=== PATIENT | male | born 1930 | race Caucasian/White ===

== ENCOUNTER 2019-01-06 14:30 | Inpatient (IN) | payer MEDICARE, BC ==
[2019-01-10] MEDS ORDERED: FAMOTIDINE 20MG TABLET PO ONE (06:00)
[2019-01-10] MEDS ORDERED: ACETAMINOPHEN 1,000 MG/100 ML BTL IVPB ONE (06:00)
[2019-01-10] MEDS ORDERED: METOCLOPRAMIDE 10 MG TABLET PO ONE (06:00)
[2019-01-10] MEDS ORDERED: MECLIZINE 25 MG TABLET PO ONE (06:00)
[2019-01-10] MEDS ORDERED: CEFAZOLIN 2 Gram 2 GM/50 ML BAG IVPB ONE (06:00)
[2019-01-10] MEDS ORDERED: CELECOXIB 100 MG CAPSULE PO ONE (06:00)
[2019-01-10] MEDS ORDERED: VANCOMYCIN HCL 1 MG in DEXTROSE 5 % IN WATER 250 ML IVPB ONE ×2 (06:00)
[2019-01-10] MEDS ORDERED: DIPHENHYDRAMINE HCL 25 MG CAPSULE PO PRN (08:28)
[2019-01-10] MEDS ORDERED: ACETAMINOPHEN W/ CODEINE 300MG/60MG TABLET PO PRN ×2 (08:28)
[2019-01-10] MEDS ORDERED: HYDROCODONE/APAP 7.5/325MG TABLET PO PRN ×2 (08:28)
[2019-01-10] MEDS ORDERED: ACETAMINOPHEN 325 MG TAB PO PRN (08:28)
[2019-01-10] MEDS ORDERED: HYDROMORPHONE HCL 2 MG/ML VIAL IM PRN ×2 (08:28)
[2019-01-10] MEDS ORDERED: ONDANSETRON HCL IV 4 MG/2 ML VIAL IVP PRN (08:28)
[2019-01-10] MEDS ORDERED: PROMETHAZINE HCL 12.5 MG in 0.9 % SODIUM CHLORIDE 100ML 50 ML IVPB PRN (08:28)
[2019-01-10] MEDS ORDERED: ZOLPIDEM TARTRATE 5 MG TABLET PO PRN (08:28)
[2019-01-10] MEDS ORDERED: BISACODYL 10 MG SUPP RC PRN (08:28)
[2019-01-10] MEDS ORDERED: AL HYDROX/MAG HYDROX 30ML UD PO PRN (08:28)
[2019-01-10] MEDS ORDERED: METOCLOPRAMIDE HCL 10 MG/2 ML VIAL IVP PRN (08:28)
[2019-01-10] MEDS ORDERED: MAGNESIUM HYDROXIDE 30 ML UDC PO PRN (08:28)
[2019-01-10] MEDS ORDERED: TRAMADOL HCL 50 MG TABLET PO PRN ×2 (08:28)
[2019-01-10] MEDS ORDERED: KETOROLAC 30 MG/ML VIAL IVP PRN ×2 (08:28)
[2019-01-10] MEDS ORDERED: HYDROCODONE/APAP 5/325MG TABLET PO PRN (08:28)
[2019-01-10] MEDS ORDERED: ACETAMINOPHEN W/ CODEINE 300MG/30MG TABLET PO PRN ×2 (08:28)
[2019-01-10] MEDS ORDERED: NALOXONE 0.4 MG/1 ML VIAL IVP PRN (08:28)
[2019-01-10] MEDS ORDERED: VANCOMYCIN HCL 1,000 MG in 0.9 % SODIUM CHLORIDE 250ML 250 ML IVPB SCH (08:30)
[2019-01-10 08:31] LABS: ABO GROUP A; RH TYPE POSITIVE
[2019-01-10 08:43] LABS: ANTIBODY SCREEN NEGATIVE (NEGATIVE)
[2019-01-10] MEDS ORDERED: RINGERS SOLUTION,LACTATED 1,000 ML IV ONE (11:00)
[2019-01-10] MEDS ORDERED: BUPIVACAINE 0.5% W/EPI MPF 30 ML VIAL SQ ONE (11:02)
[2019-01-10] MEDS ORDERED: BUPIVACAINE LIPOSOME 266MG/20ML VIAL SQ ONE (11:02)
[2019-01-10] MEDS ORDERED: RINGERS LACTATED IV ONE (11:57)
[2019-01-10] MEDS ORDERED: DEXTROSE 5 % AND 0.9 % NACL 1,000 ML IV PRN (13:00)
[2019-01-10] MEDS ORDERED: MIDAZOLAM HCL 2MG/2ML VIAL IV ONE (14:00)
[2019-01-10] MEDS: DOCUSATE SODIUM 100 MG CAPSULE PO SCH ×2 (14:08→22:02)
[2019-01-10] MEDS: FERROUS SULFATE 325 MG TAB PO SCH ×2 (14:08→22:02)
--- NOTE | 2019-01-10 15:21 | Rehab Evaluation ---
Patient Information - Patient Information Diagnosis: L hip OA Ordered Treatment: PT Evaluate and Treat Status: Initial Evaluation Surgery: Yes (L THR) Date of Surgery: 01/10/19 Past Medical/Surgical Hx: PAST MEDICAL/SURGICAL HISTORY Past Surgical History BILAT TKA CERVICAL FUSION SKIN CANCER REMOVAL NOSE AND LIPS BILAT KNEE SX'S C SCOPES PMH - Respiratory Hx Respiratory Disorders Yes Hx Sleep Apnea Yes Hx of CPAP No Hx of SOB Yes: WITH EXERTION PMH - Cardiovascular Hx Cardiovascular Disorders Yes Hx Hypertension Yes: CONTROLLED WITH MEDS Exercise Tolerance Poor Comment: D/T KNEES AND BACK PMH - Neuro Hx Neurological Disorders No PMH - GI Hx Gastrointestinal Disorders No PMH - Hx Genitourinary Disorders No PMH - Endocrine Hx Endocrine Disorders No PMH - Musculoskeletal Hx Musculoskeletal Disorders Yes Hx Arthritis Yes Hx Gout Yes PMH - Psych Hx Psychiatric Problems No PMH - Hematology/Oncology Hx Hematology/Oncology Yes Disorders Hx Cancer Yes: SKIN CANCER Hx Chemotherapy No Hx Radiation Therapy No Premorbid Status: Detail (The patient was independent with all mobility prior to surgery but was unable to complete any household or yard chores due to hip pain.) Social History: Detail (The patient lives with spouse in a one story house with 2 steps and no hand rails. The bathroom is equipped with a tub/shower combination with glass doors. The patient borrowed a shower chair with transfer bench, however the chair did not fit in bathtub.The patient's was instructed to mixing picker tender a regular shower chair from a loan closet. The toilet is standard but the is to borrow a riser seat. No grab bars are present in the bathroom. The patient has a front wheeled walker and a hurrycane.) Precautions: [place], Fall, Other (THR precautions.)
[2019-01-10] MEDS: HYDROCODONE/APAP 5/325MG TABLET PO PRN (16:19)
--- NOTE | 2019-01-10 16:30 | Rehab Evaluation ---
Patient Information - Patient Information Diagnosis: L hip OA Ordered Treatment: PT Evaluate and Treat Status: Initial Evaluation Surgery: Yes (L THR) Date of Surgery: 01/10/19 Past Medical/Surgical Hx: PAST MEDICAL/SURGICAL HISTORY Past Surgical History BILAT TKA CERVICAL FUSION SKIN CANCER REMOVAL NOSE AND LIPS BILAT KNEE SX'S C SCOPES PMH - Respiratory Hx Respiratory Disorders Yes Hx Sleep Apnea Yes Hx of CPAP No Hx of SOB Yes: WITH EXERTION PMH - Cardiovascular Hx Cardiovascular Disorders Yes Hx Hypertension Yes: CONTROLLED WITH MEDS Exercise Tolerance Poor Comment: D/T KNEES AND BACK PMH - Neuro Hx Neurological Disorders No PMH - GI Hx Gastrointestinal Disorders No PMH - Hx Genitourinary Disorders No PMH - Endocrine Hx Endocrine Disorders No PMH - Musculoskeletal Hx Musculoskeletal Disorders Yes Hx Arthritis Yes Hx Gout Yes PMH - Psych Hx Psychiatric Problems No PMH - Hematology/Oncology Hx Hematology/Oncology Yes Disorders Hx Cancer Yes: SKIN CANCER Hx Chemotherapy No Hx Radiation Therapy No Premorbid Status: Detail (The patient was independent with all mobility prior to surgery but was unable to complete any household or yard chores due to hip pain.) Social History: Detail (The patient lives with spouse in a one story house with 2 steps and no hand rails. The bathroom is equipped with a tub/shower combination with glass doors. The patient borrowed a shower chair with transfer bench, however the chair did not fit in bathtub.The patient's was instructed to picked edge sewing machine operator a regular shower chair from a loan closet. The toilet is standard but the is to borrow a riser seat. No grab bars are present in the bathroom. The patient has a front wheeled walker and a hurrycane.) Precautions: [place], Fall, Other (THR precautions.) - Time With Patient Total Time Spent With Patient (Min): 30 Treatment Procedures: Detail (Initial Evaluation, Gait training) Subjective Information - Subjective Information Per Patient (The patient had no complaints of pain.) Objective Data - Mental Status Patient Orientation: Oriented x3 - Visual Perception Appears within normal limits for therapeutic activities - ROM Not within normal limits (The patient's L hip AROM is within THR precautions. All other AROM is WNL.) - Strength/Tone Not within normal limits (The patient's L LE strength was not tested s/p surgery but was functional ie: patient was able to lift L LE with supine to sit. R LE strength was functional.) - Bed Mobility Independent (The patient was independent with supine to and from sit transfers and scooting up in bed.) - Transfers Independent (The patient was independent with sit to and from stand transfer.) - Balance Balance Sitting: Good Balance Standing: Good - Gait Detail (The patient ambulated with standard walker with occasional verbal cues for proper technique WBAT on the L LE with supervision for safety a distance of 40 feet x1. Shortness of breath was noted during ambulation.) Therapy Assessment - Therapy Assessment Detail (The patient was independent with bed mobility and transfers and required supervision for safety with ambulation. The patient exhibited shortness of breath with all physical activity. Feel the patient will progress well with mobility.) Problem List - Problem List Physical Therapy Problem List: Detail (1) Decreased L LE strength 2) Impaired ambulation secondary to THR) Goals - Goals Physical Therapy Goals: 1) The patient will show good understanding and follow THR precautions. 2) The patient will ambulate on stairs with supervision for safety. 3) The patient will be independent with THR HEP. Plan - Plan Physical Therapy Plan: PT 1-2 sessions for gait and transfer training and instruction in THR precautions.
[2019-01-10] MEDS: VANCOMYCIN HCL 1,000 MG in DEXTROSE 5 % IN WATER 250 ML IVPB SCH ×2 (22:01)
[2019-01-10] MEDS: SIMVASTATIN 20 MG TABLET PO SCH (22:02)
[2019-01-10] MEDS: CLONIDINE HCL 0.1 MG TABLET PO SCH (22:02)
[2019-01-11] MEDS: HYDROCODONE/APAP 5/325MG TABLET PO PRN ×4 (03:18→21:50)
[2019-01-11 06:57] LABS: HEMATOCRIT 39.2 % (42.0-52.0); HEMOGLOBIN 12.1 gm/dl (14.0-18.0)
--- NOTE | 2019-01-11 09:53 | Rehab Evaluation ---
Patient Information - Patient Information Diagnosis: L hip OA Ordered Treatment: OT Evaluate and Treat Status: Initial Evaluation Surgery: Yes (L THR) Date of Surgery: 01/10/19 Past Medical/Surgical Hx: PAST MEDICAL/SURGICAL HISTORY Past Surgical History BILAT TKA CERVICAL FUSION SKIN CANCER REMOVAL NOSE AND LIPS BILAT KNEE SX'S C SCOPES PMH - Respiratory Hx Respiratory Disorders Yes Hx Sleep Apnea Yes Hx of CPAP No Hx of SOB Yes: WITH EXERTION PMH - Cardiovascular Hx Cardiovascular Disorders Yes Hx Hypertension Yes: CONTROLLED WITH MEDS Exercise Tolerance Poor Comment: D/T KNEES AND BACK PMH - Neuro Hx Neurological Disorders No PMH - GI Hx Gastrointestinal Disorders No PMH - Hx Genitourinary Disorders No PMH - Endocrine Hx Endocrine Disorders No PMH - Musculoskeletal Hx Musculoskeletal Disorders Yes Hx Arthritis Yes Hx Gout Yes PMH - Psych Hx Psychiatric Problems No PMH - Hematology/Oncology Hx Hematology/Oncology Yes Disorders Hx Cancer Yes: SKIN CANCER Hx Chemotherapy No Hx Radiation Therapy No Premorbid Status: Detail (The patient was independent with all mobility and self care tasks prior to surgery but was unable to complete any household or yard chores due to hip pain.) Social History: Detail (The patient lives with spouse in a one story house with 2 steps and no hand rails at the entrance. The bathroom is equipped with a tub/ shower combination with glass doors. The patient borrowed a shower chair with transfer bench, however the chair did not fit in bathtub.The patient's was instructed to scrap picker a regular shower chair from a loan closet. The toilet is standard but the is to borrow a riser seat. No grab bars are present in the bathroom. The patient has a front wheeled walker and a 3 pronged cane. The is going to borrow a sheather.) Precautions: [place], Fall, Other (THR precautions.) - Time With Patient Total Time Spent With Patient (Min): 40 Treatment Procedures: Detail (OT eval low complexity) Subjective Information - Subjective Information Per Patient (Spouse present for evaluation) Objective Data - Pain Pain Present: No (0/10 pain) - Mental Status Patient Orientation: Oriented x3 - Visual Perception Deficit (Pt has significant visual deficits which limit his Ind.) - ROM Within normal limits (Burton UE AROM WNL) - Strength/Tone Within normal limits (Burton UE strength 4/5) - Coordination Appears within normal limits for therapeutic activities - Bed Mobility Independent (Ind with supine to sit although pt was significantly short of breath with activity.) - Transfers Independent (Pt completed transfer from EOB to chair with walker and verbal cues.) - Balance Balance Sitting: Good Balance Standing: Fair - Sensation Intact - ADL's/IADL's Detail (Pt and spouse educated on modified LE dressing techniques using sheather while maintaining total hip precautions. Pt required assist to doff slipper socks and don shorts, socks and shoes due to impaired vision along with maintaining hip precautions. Spouse reports she will be assisting him and this is not a problem.) Therapy Assessment - Therapy Assessment Detail (Pt requires assist for LE dressing due to total hip precautions and impaired vision. Spouse is able and willing to assist with LE dressing.) Problem List - Problem List Physical Therapy Problem List: Detail (1) Decreased L LE strength 2) Impaired ambulation secondary to THR) Occupational Therapy Problem List: Detail (Recommend short IP rehab stay or home OT to follow up with self care and modifications.) Goals - Goals Physical Therapy Goals: 1) The patient will show good understanding and follow THR precautions. 2) The patient will ambulate on stairs with supervision for safety. 3) The patient will be independent with THR HEP. Occupational Therapy Goals: Recommend short IP rehab stay or home OT to follow up with self care and modifications. Prognosis - Prognosis Good Plan - Plan Physical Therapy Plan: PT 1-2 sessions for gait and transfer training and instruction in THR precautions. Occupational Therapy Plan: OT will follow until discharge pending rehab admission for additional needs.
[2019-01-11] MEDS: ALLOPURINOL 100 MG TAB PO SCH (10:56)
[2019-01-11] MEDS: RIVAROXABAN 10 MG TABLET PO SCH (10:56)
[2019-01-11] MEDS: DOCUSATE SODIUM 100 MG CAPSULE PO SCH ×2 (10:56→21:48)
[2019-01-11] MEDS: CELECOXIB 100 MG CAPSULE PO SCH (10:56)
[2019-01-11] MEDS: CLONIDINE HCL 0.1 MG TABLET PO SCH ×2 (10:57→21:48)
[2019-01-11] MEDS: FERROUS SULFATE 325 MG TAB PO SCH ×2 (10:57→21:48)
[2019-01-11] MEDS: SERTRALINE HCL 50 MG TABLET PO SCH (10:58)
[2019-01-11] MEDS: VANCOMYCIN HCL 1,000 MG in DEXTROSE 5 % IN WATER 250 ML IVPB SCH ×2 (10:58)
[2019-01-11] MEDS: ATENOLOL 25 MG TABLET PO SCH (10:58)
[2019-01-11] MEDS: LISINOPRIL 20 MG TABLET PO SCH (10:58)
--- NOTE | 2019-01-11 11:16 | Physical Therapy Tx Note ---
Physical Therapy Tx Note - Treatment Note Tolerated: Fair Total Time Spent With Patient: 25 Physical Therapy Tx Note: Detail (The patient was seated in chair when PT arrived. The patient required mod PA of one with sit to stand and verbal cues not to internally rotate L hip. The patient ambulated 20 feet x 1 with shortness of breath noted. O2 sat. rate was 92. The patient was taken to stairs via wheelchair. When patient stood to do stairs R LE buckled so stairs were held until a later treatment. The patient was returned to room via wheelchair and ambulated 7 feet to bed with CG. The patient completed Sit to supine transfer with minimal/moderate PA to lift LE's and to scoot up in bed. The patient's THR HEP was reviewed including gluteal sets, ankle pumps, quad sets, hamstring sets, hip abduction supine (heel slides were held due to patient internally rotated extremely with this exercise). Patient was short of breath throughout ambulation. Feel the patient may benefit from subacute rehab due to assistance required with mobiity and increased fatigue with physical activity. Will see the patient this pm for stair climbing as tolerated.) Physical Therapy Problem List: Detail (1) Decreased L LE strength 2) Impaired ambulation secondary to THR) Physical Therapy Goals: 1) The patient will show good understanding and follow THR precautions. 2) The patient will ambulate on stairs with supervision for safety. 3) The patient will be independent with THR HEP. Physical Therapy Plan: PT 1-2 sessions for gait and transfer training and instruction in THR precautions.
[2019-01-11] MEDS ORDERED: BUPIVACAINE 0.5% W/EPI MPF 30 ML VIAL IVP ONE (12:58)
[2019-01-11] MEDS ORDERED: BUPIVACAINE LIPOSOME 266MG/20ML VIAL IV ONE (12:58)
[2019-01-11] MEDS ORDERED: VANCOMYCIN HCL 1 GM VIAL IVPB ONE (12:58)
[2019-01-11] MEDS ORDERED: TRANEXAMIC ACID 1,000 MG/10 ML ML IV ONE ×2 (12:58→13:03)
--- NOTE | 2019-01-11 14:21 | Operative Note ---
DATE OF SURGERY: 01/10/2019 PREOPERATIVE DIAGNOSIS: End-stage left hip arthrosis. POSTOPERATIVE DIAGNOSIS: End-stage left hip arthrosis. OPERATION: Left total hip arthroplasty. SURGEON: Umberto Lawson MD ANESTHESIA: Spinal. JOSE ALBERTO Fam. COMPLICATIONS: None. BLOOD LOSS: 200 mL. OPERATIVE FINDINGS: [id number] left hip arthrosis. COMPONENTS PLACED: A 2 g vancomycin cemented Synergy total hip arthroplasty system, size 15 high offset stem with a 58 mm 3-hole Reflection acetabular shell with 2 screw caps with 1 acetabular screw and 2 screw caps, centrally-threaded screw caps, and highly crosslinked polyethylene 35-degree rey liner, 32 plus 0 mm cobalt chrome femoral head. INDICATION: An 88-year-old male who has had persistent pain and dysfunction in both hips for several years. Failed nonoperative treatment. Scheduled for total hip arthroplasty. I explained all risks and benefits in detail for the diagnosis and procedure including but not limited to infection, nerve injury, vessel injury, persistent pain, stiffness, numbness, tingling in his hip, periprosthetic fracture, need for resection arthroplasty should the components become infected or loosen, blood clot, limb length discrepancy, need for further procedures, need for anticoagulation to prevent blood clots and risks associated with these medications. All his questions were answered. The course was outlined. He agreed to proceed. PROCEDURE: The patient brought to the OR and placed in the right lateral decubitus position. The left hip and lower extremity prepped and draped in sterile fashion. Prepped again with Chloraprep and draped. Intraoperative timeout was performed. Next, a posterior approach was marked over the hip gluteal region using incision nena template. It was infiltrated with 0.5% Marcaine with epinephrin, tranexamic acid, and Exparel mixture. Skin and subcutaneous tissue dissected down inside the gluteus fascia longitudinal. I dissected down bluntly into the subgluteal plane or at least part of the gluteus ryder tendon and brought in self-retainer. I had good exposure. Identified the sciatic nerve, carefully protected at all times. Took off the short external rotators. I then exposed the hip, removed some of the labrum around the periphery. I then incised the capsule and released in upside down T fashion and dislocated the femoral head. The femoral head severely deformed, flattened, no cartilage at all. We then resected the femoral head about 1 cm above the lesser trochanter, inserted a box osteotome and started reaming by hand and worked in 1 mm increments up to a size 15. We stopped there and then we broached a 15. I broached from a 13 calcar plane up to a 14, up to a 15 and we stopped there in a good fit and plan to use cemented components on this 88-year-old male. Attention turned to the acetabulum. Placed inferior acetabular retractor and released the capsule anteriorly. Placed a retractor there, had good exposure. Released the peripheral labrum from the capsule. Next, started reaming in 1 mm increments and 45 degrees inclination and 20 degrees anteverted until we reamed up to a size 57. We trialed a 58, had a good fit medially and laterally and we stopped there. We irrigated copiously, changed gloves, and then impacted down the real 3-hole acetabular shell using the helicopter guide again in the same orientation until it was flush medially. Next, we drilled a posterior central superior quadrant screw hole, inserted that. Screw was 45 mm, had a good purchase. We then placed a trial liner and did a trial reduction. Best combination range of motion, stability, and leg lengths with a size 15 high offset 32 plus 0 mm head. This allowed for good abductor tension, stability with flexion and internal rotation to 70-80 degrees and stability with extension and external rotation and symmetric leg lengths. Next, we removed all trial components, irrigated copiously, and then placed the 2 screw caps, centrally-threaded screw cap, and then impacted down the real acetabular liner with the rey in the posterosuperior quadrant until it was flush and under lock. Irrigated the femoral canal, inserted the femoral canal restrictor and then injected cement with 3rd generation cement technique, removed with a suction catheter and inserted the real femoral stem until the collar was flush with the medial calcar and approximately 15 degrees of anteversion, held it until cement hardened. We cleaned and dried the trunnion and impacted down the real cobalt chrome femoral head component and then reduced the hip. Found the range of motion to be the same. Irrigated copiously. Repaired the gluteal fascia with a running #2 quill suture. Irrigated again. Closed the skin with 2-0 Vicryl and deep buried and then provisional dressing with Acticoat and dressing was applied, change to a KYLE dressing prior to discharge. Sterile dressing applied. Abduction pillow. Postoperative x-ray revealed good fit and orientation of components. The patient tolerated the procedure well. No intraoperative complications. All sponge and blade counts correct. Sent to recovery in stable condition. Neurovascularly intact. Can be discharged likely tomorrow, 1-2 days, home. Follow up in 2 weeks. CC: Wicho RODRIGES
--- NOTE | 2019-01-11 14:41 | Physical Therapy Tx Note ---
Physical Therapy Tx Note - Treatment Note Tolerated: Good Total Time Spent With Patient: 15 Physical Therapy Tx Note: Detail (The patient was in bed when PT arrived. The patient was independent with supine to and from sit transfer and scooting up in bed. The patient was minimal PA of 1 with sit to stand. The patient ambulated with standard walker 35 feet x 1 WBAT on the R LE sith supervision for safety. The patient continues to exhibit shortness of breath. Stairs were not attempted due to the patient's fatigue. Patient's stated family is putting 2 railings on steps.) Physical Therapy Problem List: Detail (1) Decreased L LE strength 2) Impaired ambulation secondary to THR) Physical Therapy Goals: 1) The patient will show good understanding and follow THR precautions. 2) The patient will ambulate on stairs with supervision for safety. 3) The patient will be independent with THR HEP. Physical Therapy Plan: PT 1-2 sessions for gait and transfer training and instruction in THR precautions.
[2019-01-11] MEDS: SIMVASTATIN 20 MG TABLET PO SCH (21:48)
[2019-01-12 06:48] LABS: HEMATOCRIT 35.7 % (42.0-52.0)
--- NOTE | 2019-01-12 07:36 | RADIOLOGY REPORT ---
EXAM: AP PELVIS HISTORY: STATUS POST LEFT HIP ARTHROPLASTY. TECHNIQUE: A frontal AP view of the pelvis was obtained. Comparison: None. FINDINGS: Left hip arthroplasty appears intact and in expected alignment on this single view study. No fracture is seen. Some lucency in the paraarticular soft tissues may represent expected postoperative gas. 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 Degenerative findings in the visualized lower lumbar spine. IMPRESSION: ABOVE. JOB NUMBER: [id number] MTDD
[2019-01-12] MEDS: ALLOPURINOL 100 MG TAB PO SCH (10:07)
[2019-01-12] MEDS: CELECOXIB 100 MG CAPSULE PO SCH (10:07)
[2019-01-12] MEDS: ATENOLOL 25 MG TABLET PO SCH (10:08)
[2019-01-12] MEDS: RIVAROXABAN 10 MG TABLET PO SCH (10:08)
[2019-01-12] MEDS: SERTRALINE HCL 50 MG TABLET PO SCH (10:08)
[2019-01-12] MEDS: DOCUSATE SODIUM 100 MG CAPSULE PO SCH (10:08)
[2019-01-12] MEDS: LISINOPRIL 20 MG TABLET PO SCH (10:08)
[2019-01-12] MEDS: CLONIDINE HCL 0.1 MG TABLET PO SCH (10:08)
[2019-01-12] MEDS: FERROUS SULFATE 325 MG TAB PO SCH (10:08)
[2019-01-12] MEDS: HYDROCODONE/APAP 5/325MG TABLET PO PRN (10:09)
[2019-01-12] MEDS ORDERED: IPRATROPIUM/ALBUTEROL (0.5MG/3MG) NEB INH PRN (10:28)
--- NOTE | 2019-01-12 16:39 | Physical Therapy Tx Note ---
Physical Therapy Tx Note - Treatment Note Tolerated: Fair Total Time Spent With Patient: 20 Physical Therapy Tx Note: Detail (The patient was seen in the am for gait training on levels and stairs. The patient's was present for session. The patient was up in chair and was independent with sit to and from stand from higher surface. The patient ambulated with 2L of O2 and CG for safety with standard walker a distance of 11 feet. The patient was taken to Rehab department stairs. The patient ambulated on three steps with use of railings with cues to place whole foot on steps due to visual deficits and CG of 2 for safety and 2 L of O2. The patient presented with unsteadiness of gait and increased fatigue. Will see patient this pm for gait training on levels and stairs. Patient is requesting to take pt. home.) Physical Therapy Problem List: Detail (1) Decreased L LE strength 2) Impaired ambulation secondary to THR) Physical Therapy Goals: 1) The patient will show good understanding and follow THR precautions. 2) The patient will ambulate on stairs with supervision for safety. 3) The patient will be independent with THR HEP. Physical Therapy Plan: PT 1-2 sessions for gait and transfer training and instruction in THR precautions.
--- NOTE | 2019-01-12 16:46 | Physical Therapy Tx Note ---
Physical Therapy Tx Note - Treatment Note Tolerated: Good Total Time Spent With Patient: 20 Physical Therapy Tx Note: Detail (The patient was in bed when PT arrived. The patient was independent with bed mobility and sit to stand transfer. The patient ambulated with 2L of O2 and standard walker with supervision for safety 30 -40 feet x 2. The patient ambulated on stairs with CG/supervision for safety with use of 2 railings with minimal verbal cues due to visual deficits. The patient's was again present. The patient's performance in PT was improved with a more steady gait pattern and requiring less assistance overall. Less shortness of breath was noted. The patient's was instructed to have her son and grand son present with stair climbing. Patient's and patient felt good with stair climbing. Son's are to secure railings. Patient has met all inpatient goals and is to receive Home PT.) Physical Therapy Problem List: Detail (1) Decreased L LE strength 2) Impaired ambulation secondary to THR) Physical Therapy Goals: 1) The patient will show good understanding and follow THR precautions.(Goal Met- patient's cues patient). 2) The patient will ambulate on stairs with supervision for safety (Goal Met). 3) The patient will be independent with THR HEP. (Goal Met) Physical Therapy Plan: Patient is discharged from inpatient PT and is to receive Home PT. Patient's is aware of patient's supervision needs with ambulation on levels and stairs.
== END 2019-01-12 19:10 | disposition home health service (06) | DRG 470 ==
LOC: UNDOADMIN 01-10 07:55 → MEDSURG 01-10 07:55
PROVIDERS: ADMIT Orthopaedic Surgery; ATTEND Orthopaedic Surgery
PROC: 0SRB069 Replacement of Left Hip Joint with Oxidized Zirconium on Polyethylene Synthetic Substitute, Cemented, Open Approach (ICD-10-PCS; principal; 2019-01-11)
DX: M16.12 Unilateral primary osteoarthritis, left hip (principal); I10 Essential (primary) hypertension; E78.00 Pure hypercholesterolemia, unspecified; M10.9 Gout, unspecified
CPT/HCPCS: 72170; 85014; 85018; 86850; 86900; 86901; 94760; 97110; 97530; J7042; J7050; J7060; J7120

== ENCOUNTER 2019-03-14 07:57 | Inpatient (IN) | payer MEDICARE, BC ==
[~2019-03-14 07:57] MED LIST: ACETAMINOPHEN 500 MG TABLET PO ONE; CEFAZOLIN 2 Gram 2 GM/50 ML BAG IVPB ONE; CELECOXIB 100 MG CAPSULE PO ONE; FAMOTIDINE 20MG TABLET PO ONE; METOCLOPRAMIDE 10 MG TABLET PO ONE; SCOPOLAMINE 1 PATCH TDSY TD ONE; VANCOMYCIN 1GM/200ML PREMIX 1 GM/200 ML PIGGYBACK IVPB ONE
[2019-03-14] MEDS ORDERED: ACETAMINOPHEN W/ CODEINE 300MG/60MG TABLET PO PRN ×2 (08:03)
[2019-03-14] MEDS ORDERED: KETOROLAC 30 MG/ML VIAL IVP PRN ×2 (08:03)
[2019-03-14] MEDS ORDERED: ACETAMINOPHEN W/ CODEINE 300MG/30MG TABLET PO PRN ×2 (08:03)
[2019-03-14] MEDS ORDERED: HYDROCODONE/APAP 5/325MG TABLET PO PRN ×2 (08:03)
[2019-03-14] MEDS ORDERED: ONDANSETRON HCL IV 4 MG/2 ML VIAL IVP PRN (08:03)
[2019-03-14] MEDS ORDERED: AL HYDROX/MAG HYDROX 30ML UD PO PRN (08:03)
[2019-03-14] MEDS ORDERED: NALOXONE 0.4 MG/1 ML VIAL IVP PRN (08:03)
[2019-03-14] MEDS ORDERED: METOCLOPRAMIDE HCL 10 MG/2 ML VIAL IVP PRN (08:03)
[2019-03-14] MEDS ORDERED: ZOLPIDEM TARTRATE 5 MG TABLET PO PRN (08:03)
[2019-03-14] MEDS ORDERED: TRAMADOL HCL 50 MG TABLET PO PRN ×2 (08:03)
[2019-03-14] MEDS ORDERED: DIPHENHYDRAMINE HCL 25 MG CAPSULE PO PRN (08:03)
[2019-03-14] MEDS ORDERED: HYDROCODONE/APAP 7.5/325MG TABLET PO PRN ×2 (08:03)
[2019-03-14] MEDS ORDERED: HYDROMORPHONE HCL 2 MG/ML VIAL IM PRN ×2 (08:03)
[2019-03-14] MEDS ORDERED: MAGNESIUM HYDROXIDE 30 ML UDC PO PRN (08:03)
[2019-03-14] MEDS ORDERED: PROMETHAZINE HCL 12.5 MG in 0.9 % SODIUM CHLORIDE 100ML 50 ML IVPB PRN (08:03)
[2019-03-14] MEDS ORDERED: BISACODYL 10 MG SUPP RC PRN (08:03)
[2019-03-14] MEDS ORDERED: RINGERS SOLUTION,LACTATED 1,000 ML IV ONE ×3 (08:48→10:40)
[2019-03-14 09:10] LABS: ABO GROUP A; ANTIBODY SCREEN NEGATIVE (NEGATIVE); RH TYPE POSITIVE
[2019-03-14] MEDS ORDERED: BUPIVACAINE LIPOSOME 266MG/20ML VIAL SQ ONE (10:52)
[2019-03-14] MEDS ORDERED: VANCOMYCIN HCL 3,000 MG in RINGERS SOLUTION,LACTATED 3,000 ML IVPB ONE (10:52)
[2019-03-14] MEDS ORDERED: BUPIVACAINE 0.5% W/EPI MPF 30 ML VIAL SQ ONE (10:52)
[2019-03-14] MEDS ORDERED: TRANEXAMIC ACID 1,000 MG/10 ML ML IV ONE (14:00)
--- NOTE | 2019-03-14 16:11 | Rehab Evaluation ---
Patient Information - Patient Information Diagnosis: OA R hip Ordered Treatment: PT Evaluate and Treat Status: Initial Evaluation Surgery: Yes (RTHR) Date of Surgery: 03/14/19 Past Medical/Surgical Hx: PAST MEDICAL/SURGICAL HISTORY Surgery to Affected Area? No Recent Surgery? Past Surgical History LEFT SLY 01-10-19 BILAT TKA CERVICAL FUSION SKIN CANCER REMOVAL NOSE AND LIPS BILAT KNEE SX'S C SCOPES PMH - Respiratory Hx Respiratory Disorders Yes Hx Sleep Apnea Yes Hx of CPAP No Hx of SOB Yes: WITH EXERTION PMH - Cardiovascular Hx Cardiovascular Disorders Yes Hx Hypertension Yes: CONTROLLED WITH MEDS Exercise Tolerance Fair Comment: D/T KNEES AND BACK PMH - Neuro Hx Neurological Disorders No PMH - GI Hx Gastrointestinal Disorders No PMH - Hx Genitourinary Disorders No PMH - Endocrine Hx Endocrine Disorders No PMH - Musculoskeletal Hx Musculoskeletal Disorders Yes Hx Arthritis Yes Hx Gout Yes PMH - Psych Hx Psychiatric Problems No PMH - Hematology/Oncology Hx Hematology/Oncology Yes Disorders Hx Cancer Yes: SKIN CANCER Hx Chemotherapy No Hx Radiation Therapy No Premorbid Status: Detail (The patient was independent with mobility prior to surgery.) Social History: Detail (The paient lives with spouse in a one story house with 3 steps at the enterance and one hand rail. The bathroom is equipped with : a walk in shower, grab bars, shower seat, standard toilet ( high enough to maintain THR precautions). The patient has a standard walker, standard cane and shower chair.) Precautions: [place], Fall, Other (THR precautions) - Time With Patient Total Time Spent With Patient (Min): 30 Treatment Procedures: Detail (Initial Evaluation minimal complexity, gait training.) Subjective Information - Subjective Information Per Patient (The patient had minimal complaints of pain in R hip level 2 at the highest using 0-10 pain scale.) Objective Data - Mental Status Patient Orientation: Oriented x3 - Visual Perception Appears within normal limits for therapeutic activities - ROM Not within normal limits (The patient's R hip is withing THR precautions.) - Strength/Tone Not within normal limits (The patient 's R LE strength was not tested s/p surgery however was functional. Patient's L LE strength was WFL.) - Bed Mobility Independent (The patient was independent with supine to and from sit transfer.) - Transfers Independent (The patient was independent with sit to and from stand transfer.) - Balance Balance Sitting: Good Balance Standing: Good - Sensation Intact - Gait Detail (The patient ambulated with front wheeled walker WBAT on the R LE with supervision of one for safety a distance 40 feet x 1 with shortness of breath noted.) Therapy Assessment - Therapy Assessment Detail (The patient was independent with bed mobility , transfers and ambulation limited distance. Feel the patient will progress well with mobility with shortness of breath being the limiting factor.) Patient Education - Patient Education Teaching Topic: Precautions (The patient was aware of THR precautions and was able to follow them functionally) Response: Return Demonstration Teaching Method: Demonstration Teaching Recipient: Patient Barriers To Learning: Age Related Problem List - Problem List Physical Therapy Problem List: Detail (1) Decreased R LE strength s/p surgery 2) Shortness of breath with ambulation and bed mobility 3) Impaired ambulation s/p surgery) Goals - Goals Physical Therapy Goals: 1) The patient will be independent with THR precautions. 2) The patient will ambulate on stairs with supervision for safety using proper technique. 3) The patient will ambulate with standard walker household distances independently WBAT on the R LE. Prognosis - Prognosis Good Plan - Plan Physical Therapy Plan: PT 1-2 sessions for gait training on levels and stairs and instruction in HEP.
[2019-03-14] MEDS: DEXTROSE 5 % AND 0.9 % NACL 1,000 ML IV PRN (16:46)
[2019-03-14] MEDS: LISINOPRIL 20 MG TABLET PO SCH (16:57)
[2019-03-14] MEDS: FERROUS SULFATE 325 MG TAB PO SCH (21:09)
[2019-03-14] MEDS: CLONIDINE HCL 0.1 MG TABLET PO SCH (21:10)
[2019-03-14] MEDS: SIMVASTATIN 20 MG TABLET PO SCH (21:10)
[2019-03-14] MEDS: DOCUSATE SODIUM 100 MG CAPSULE PO SCH (21:10)
[2019-03-14] MEDS: VANCOMYCIN 1GM/200ML PREMIX 1 GM/200 ML PIGGYBACK IVPB SCH (22:08)
[2019-03-15] MEDS: DEXTROSE 5 % AND 0.9 % NACL 1,000 ML IV PRN (03:35)
[2019-03-15 06:18] LABS: HEMATOCRIT 33.5 % (42.0-52.0); HEMOGLOBIN 10.3 gm/dl (14.0-18.0)
[2019-03-15] MEDS: VANCOMYCIN 1GM/200ML PREMIX 1 GM/200 ML PIGGYBACK IVPB SCH (09:16)
[2019-03-15] MEDS: CELECOXIB 100 MG CAPSULE PO SCH (09:16)
[2019-03-15] MEDS: CLONIDINE HCL 0.1 MG TABLET PO SCH ×2 (09:16→21:17)
[2019-03-15] MEDS: FERROUS SULFATE 325 MG TAB PO SCH ×2 (09:18→21:16)
[2019-03-15] MEDS: ATENOLOL 25 MG TABLET PO SCH (09:18)
[2019-03-15] MEDS: DOCUSATE SODIUM 100 MG CAPSULE PO SCH ×2 (09:18→21:16)
[2019-03-15] MEDS: RIVAROXABAN 10 MG TABLET PO SCH (09:18)
[2019-03-15] MEDS: LISINOPRIL 20 MG TABLET PO SCH (09:18)
[2019-03-15] MEDS: SERTRALINE HCL 50 MG TABLET PO SCH (09:19)
[2019-03-15] MEDS: ALLOPURINOL 100 MG TAB PO SCH (09:19)
[2019-03-15] MEDS: ACETAMINOPHEN 325 MG TAB PO PRN (10:48)
[2019-03-15] MEDS ORDERED: PROPOFOL 10 MG/ML VIAL IV ONE (11:26)
[2019-03-15] MEDS ORDERED: MIDAZOLAM HCL 2MG/2ML VIAL IV ONE (11:26)
[2019-03-15] MEDS ORDERED: EPHEDRINE SULFATE 50 MG/ML ML IV ONE (11:26)
--- NOTE | 2019-03-15 11:47 | Rehab Evaluation ---
Patient Information - Patient Information Diagnosis: OA R hip Ordered Treatment: OT Evaluate and Treat Status: Initial Evaluation Surgery: Yes (R THR) Date of Surgery: 03/14/19 Past Medical/Surgical Hx: PAST MEDICAL/SURGICAL HISTORY Surgery to Affected Area? No Recent Surgery? Past Surgical History LEFT SLY 01-10-19 BILAT TKA CERVICAL FUSION SKIN CANCER REMOVAL NOSE AND LIPS BILAT KNEE SX'S C SCOPES PMH - Respiratory Hx Respiratory Disorders Yes Hx Sleep Apnea Yes Hx of CPAP No Hx of SOB Yes: WITH EXERTION PMH - Cardiovascular Hx Cardiovascular Disorders Yes Hx Hypertension Yes: CONTROLLED WITH MEDS Exercise Tolerance Fair Comment: D/T KNEES AND BACK PMH - Neuro Hx Neurological Disorders No PMH - GI Hx Gastrointestinal Disorders No PMH - Hx Genitourinary Disorders No PMH - Endocrine Hx Endocrine Disorders No PMH - Musculoskeletal Hx Musculoskeletal Disorders Yes Hx Arthritis Yes Hx Gout Yes PMH - Psych Hx Psychiatric Problems No PMH - Hematology/Oncology Hx Hematology/Oncology Yes Disorders Hx Cancer Yes: SKIN CANCER Hx Chemotherapy No Hx Radiation Therapy No Premorbid Status: Detail (The patient was independent with functional mobility prior to surgery. His assisted with LB dressing at baseline d/t visual deficits and large belly causing difficulty reaching feet.) Social History: Detail (The patient lives with spouse in a one story house with 3 steps at the entrance and a right side hand rail. The bathroom is equipped with a walk in shower, grab bars, shower seat, and a standard toilet ( reports they have a riser she can slide on the toilet). The patient has a standard walker and a standard cane.) Precautions: [place], Fall, Other (R THR precautions) - Time With Patient Total Time Spent With Patient (Min): 36 (1 eval, 1 TA) Treatment Procedures: Detail (OT eval: low complexity) Subjective Information - Subjective Information Per Patient (Ok to see per NANCI Isaacs. Pt agreeable to OT eval and Tx, spouse Hanna present.) Objective Data - Pain Pain Present: Yes (11/21, reports he was given [place] at 6:30 and Pt not in need of pain meds this session) - Mental Status Patient Orientation: Oriented x3 - Visual Perception Appears within normal limits for therapeutic activities (Pt reports progressed macular degeneration bilaterally as well as [place].) - ROM Within normal limits - Strength/Tone Within normal limits - Coordination Deficit (Pt requiring repeated verbal and tactile instruction for simple tasks, i.e. "step forward," "bring your walker with you," etc.) - Bed Mobility Needs Assist (Supine to EOB with initial unsuccessful attempted ues of trapeze. OT instructs Pt on use of bed rails, however continues to require MOD assist. Very SOB and SpO2 decreased to 83%, OT instructs Pt on pursed-lip breathing technique and Pt demos fair follow through despite continued demonstration and verbal instruction. SpO2 increased to 92% with 30 sec. recover.) - Transfers Needs Assist (Sit to stand with MIN assist to FWW. SBA for static standing.) - Balance Balance Sitting: Good, Fair Balance Standing: Fair - Sensation Intact - Gait Detail (MIN assist (tactile cueing) and MOD verbal instruction for ambulation forward and backward 4 ft and for pivot to chair, as Pt attempts to sit prior to body reaching chair, further reminders to keep walker in front of him as he oneil ps walker static as he moves, unsafely leaning way forward over walker. SpO2 dropped to 80%, again poor follow thru with breathing technique, 30 sec. recover. RN Shital notified of O2 status.) - ADL's/IADL's Detail (OT educates Pt on AE for LB dress, however Pt and spouse decline demo/practice as plans to continue assisting Pt with LB dressing d/t Pt's macular degeneration. OT educates Pt on pursed-lip breathing technique and practices with Pt who demos fair to poor follow through. SpO2 maintains >88% when using technique, however quickly drops to low 80s during functional mvmt, as Pt forgets technique despite verbal instructions. Spouse reports she used WC follow during functional TFs/mobility at home after last SLY, however Pt currently requiring MIN physical assist during TFs at this time.) Therapy Assessment - Therapy Assessment Detail (Pt demos good follow through with hip precautions and is motivated to return to PLOF, however is currently limited by decreased cardiopulmonary endurance (quickly decreasing O2 sats), decreased knowledge and use of breathing and energy conservation strategies, and decreased safety with functional mobility. Rec [facility]EN[facility] vs. home OT and visiting nurses pending progress in IP OT.) Patient Education - Patient Education Teaching Topic: Equipment Use, Exercise/Activity, Precautions, Other (breathing and energy conservation techniques) Response: Return Demonstration, Verbalize Understanding Teaching Method: Discussion, Demonstration Teaching Recipient: Patient, Significant Other Barriers To Learning: Cognitive/Verbal Problem List - Problem List Physical Therapy Problem List: Detail (1) Decreased R LE strength s/p surgery 2) Shortness of breath with ambulation and bed mobility 3) Impaired ambulation s/p surgery) Occupational Therapy Problem List: Detail (1. Decreased cardiopulmonary endurance (quickly decreasing O2 sats), 2. Decreased knowledge and use of breathing and energy conservation strategies, 3. Decreased safety with functional mobility and TFs with safe use of FWW) Goals - Goals Physical Therapy Goals: 1) The patient will be independent with THR precautions. 2) The patient will ambulate on stairs with supervision for safety using proper technique. 3) The patient will ambulate with standard walker household distances independently WBAT on the R LE. Occupational Therapy Goals: 1. Pt will demo increased cardiopulmonary endurance during functional tasks 2. Pt will verbalize pursed-lip breathing and 3 energy conservation techniques and demo good follow thru throughout Tx 3. Pt will demo increased safety with functional mobility and TFs with safe use of FWW Prognosis - Prognosis Moderate (O2 and some cognitive deficits vs. confusion d/t pain meds limiting prognosis) Plan - Plan Physical Therapy Plan: PT 1-2 sessions for gait training on levels and stairs and instruction in HEP. Occupational Therapy Plan: OT 1-2 sessions to address needs/goals for safe DC to least restrictive environment.
--- NOTE | 2019-03-15 12:07 | Physical Therapy Tx Note ---
Physical Therapy Tx Note - Treatment Note Tolerated: Good Total Time Spent With Patient: 25 Physical Therapy Tx Note: Detail (The patient was up in chair when PT arrived. The patient ambulated 24 feet x 2 with standard walker WBAT on the L LE with CG for safety. O2 saturation level remained in the 90 's. The patient was independent with sit to supine and scooting up in bed. The patient completed THR exercises including: supine hip abduction, heel slides, ankle pumps, gluteal sets quad sets, hamstring sets. Will see the patient this pm for stair climbing.) Physical Therapy Problem List: Detail (1) Decreased R LE strength s/p surgery 2) Shortness of breath with ambulation and bed mobility 3) Impaired ambulation s/p surgery) Physical Therapy Goals: 1) The patient will be independent with THR precautions. 2) The patient will ambulate on stairs with supervision for safety using proper technique. 3) The patient will ambulate with standard walker household distances independently WBAT on the R LE. Physical Therapy Plan: PT 1-2 sessions for gait training on levels and stairs and instruction in HEP.
--- NOTE | 2019-03-15 15:24 | Occupational Therapy Tx Note ---
Occupational Therapy Tx Note - Treatment Note Tolerated: Good Total Time Spent With Patient: 11 (1 sc) Occupational Therapy Treatment Note: Detail (S: Pt supine in bed horizontally with feet off one side of bed and head backwards off other side and very SOB when therapist arrives. O: MAX assist supine to sit to EOB. Verbal instruction for pursed lip breathing technique, SpO2 at 80%, ~30 sec recover to 88%, fair follow through with technique. When asked why Pt in this position he reports he needed to use the bathroom, OT educates Pt on use of call light. Light MIN for sit to stand to FWW, assist for pant/brief mgmt in standing as Pt unable to comprehend/follow thru when verbally instructed to pull pants partially down/out of the way to use urinal. Pt stands SBA during use of urinal (unable to urinate). MIN assist (verbal and tactile instruction) for side stepping at EOB and safe use of walker. Spouse and RN Shital present at end of session. A: Pt's decreased ability to follow directions, problem solve, and decreased awareness overall affecting safety and functional independence. Rec further IP OT to address goals. Rec REN[facility] vs. home with 24/7 assist at DC pending progress and spouse ability to safely assist with Pt's needs at home.) Occupational Therapy Problem List: Detail (1. Decreased cardiopulmonary endurance (quickly decreasing O2 sats), 2. Decreased knowledge and use of breathing and energy conservation strategies, 3. Decreased safety with functional mobility and TFs with safe use of FWW) Occupational Therapy Goals: 1. Pt will demo increased cardiopulmonary endurance during functional tasks 2. Pt will verbalize pursed-lip breathing and 3 energy conservation techniques and demo good follow thru throughout Tx 3. Pt will demo increased safety with functional mobility and TFs with safe use of FWW Prognosis: Moderate Occupational Therapy Plan: OT 1-2 sessions to address needs/goals for safe DC to least restrictive environment.
--- NOTE | 2019-03-15 15:49 | Physical Therapy Tx Note ---
Physical Therapy Tx Note - Treatment Note Tolerated: Good Total Time Spent With Patient: 20 Physical Therapy Tx Note: Detail (The patient was in bed when PT arrived and required minimal PA of 1 with supine to sit. The was taken to Rehab Dept. and ambulated on 3 steps with use of 2 railings with Supervision/CG for safety using proper technique. The patient ambulated 15 feet with supervision for safety WBAT on the R LE. The patient's O2 sat level after stair climbing was 88. The patient did well on stairs. PT will check on patient tomorrow and ambulate in [address].) Physical Therapy Problem List: Detail (1) Decreased R LE strength s/p surgery 2) Shortness of breath with ambulation and bed mobility 3) Impaired ambulation s/p surgery) Physical Therapy Goals: 1) The patient will be independent with THR precautions ( Goal Met). 2) The patient will ambulate on stairs with supervision for safety using proper technique.(Goal Met). 3) The patient will ambulate with standard walker household distances independently WBAT on the R LE. Physical Therapy Plan: PT 1-2 sessions for gait training on levels and stairs and instruction in HEP.
[2019-03-15] MEDS: SIMVASTATIN 20 MG TABLET PO SCH (21:17)
[2019-03-16 06:32] LABS: HEMATOCRIT 30.5 % (42.0-52.0); HEMOGLOBIN 9.2 gm/dl (14.0-18.0)
[2019-03-16] MEDS: ALLOPURINOL 100 MG TAB PO SCH (09:09)
[2019-03-16] MEDS: CELECOXIB 100 MG CAPSULE PO SCH (09:10)
[2019-03-16] MEDS: RIVAROXABAN 10 MG TABLET PO SCH (09:10)
[2019-03-16] MEDS: ATENOLOL 25 MG TABLET PO SCH (09:10)
[2019-03-16] MEDS: SERTRALINE HCL 50 MG TABLET PO SCH (09:10)
[2019-03-16] MEDS: CLONIDINE HCL 0.1 MG TABLET PO SCH ×2 (09:10→21:34)
[2019-03-16] MEDS: FERROUS SULFATE 325 MG TAB PO SCH ×2 (09:10→21:34)
[2019-03-16] MEDS: DOCUSATE SODIUM 100 MG CAPSULE PO SCH ×2 (09:11→21:34)
[2019-03-16] MEDS: LISINOPRIL 20 MG TABLET PO SCH (09:11)
[2019-03-16] MEDS: ACETAMINOPHEN 325 MG TAB PO PRN (10:37)
--- NOTE | 2019-03-16 12:38 | Physical Therapy Tx Note ---
Physical Therapy Tx Note - Treatment Note Tolerated: Good Total Time Spent With Patient: 25 Physical Therapy Tx Note: Detail (The patient was up in recliner when PT arrived with present with 2L of O2. The patient stated R hip was hurting. The patient required moderate PA of 1 to stand from recliner. The patient was able to acheive sit to stand from recliner with CG the second time when properly cued to lean forward and bring feet behind him. assisted PT to pull up patient's pants due to patient leaning backward. Patient was able to lean forward with verbal cues. Due to shortness of breath O 2 was placed on patient while ambulating. The patient ambulated 25 feet x 1 with CG/supervision for safety. The patient then was returned to room via wheelchair and transferred to wheelchair with use of walker with CG/minimal PA. The patient was left in recliner with call light within reach and present.) Physical Therapy Problem List: Detail (1) Decreased R LE strength s/p surgery 2) Shortness of breath with ambulation and bed mobility 3) Impaired ambulation s/p surgery) Physical Therapy Goals: 1) The patient will be independent with THR precautions ( Goal Met). 2) The patient will ambulate on stairs with supervision for safety using proper technique.(Goal Met). 3) The patient will ambulate with standard walker household distances independently WBAT on the R LE. Physical Therapy Plan: PT 1-2 sessions for gait training on levels and stairs and instruction in HEP.
--- NOTE | 2019-03-16 15:45 | Occupational Therapy Tx Note ---
Occupational Therapy Tx Note - Treatment Note Tolerated: Good Total Time Spent With Patient: 23 (1 ADL) Occupational Therapy Treatment Note: Detail (S: Pt on toilet upon arrival, reports he has been attempting to urinate over 20 minutes. Pt agreeable to therapy. O: Therapist initiates practice with standing pant mgmt post toileting. Sit to stand to FWW/GB with CGA and verbal instruction for successful technique. In standing, Pt with strong posterior lean, corrected with repeated therapist verbal instruction, retropulsion increases with tactile cueing for forward lean. Pt able to pull briefs partially over buttocks with heavy L UE support on GB, continues to lean posteriorly and Pt unable to correct, requiring therapist to assist with controlled descent to toilet. Second trial, Pt able to don brief to waist from thigh level, requires assist to pull up pants prior to requesting seated rest. Fxl ambulation with FWW to sink with CGA and verbal instruction for close positioning at sink-side, as Pt leaning 90 degrees over walker to reach sink. MIN verbal cueing for sequencing and locating hand washing items (soap, paper towels). CGA for ambulation to bedside and Pt stood 27 sec at EOB while marching in place to increase standing duration/balance in prep for standing ADLs. Pt reports he is tired and requires seated rest. Verbal instruction for pursed-lip breathing throughout - Pt demos increased follow through and less labored breathing with technique, SpO2 maintained >90% throughout Tx. A: Pt with increased cardiopulmonary endurance this date and increased follow through with breathing techniques. Continues to be functionally limited by decreased total body endurance, postural instability in standing, and increased repitition/practice needed for follow through of instructions.) Occupational Therapy Problem List: Detail (1. Decreased cardiopulmonary endurance (quickly decreasing O2 sats), 2. Decreased knowledge and use of breathing and energy conservation strategies, 3. Decreased safety with functional mobility and TFs with safe use of FWW) Occupational Therapy Goals: 1. Pt will demo increased cardiopulmonary endurance during functional tasks, 2. Pt will verbalize pursed-lip breathing and 3 energy conservation techniques and demo good follow thru throughout Tx 3. Pt will demo increased safety with functional mobility and TFs with safe use of FWW 4. Pt will demo standing pant mgmt at toilet with SBA Prognosis: Good Occupational Therapy Plan: OT 1-2 sessions to address needs/goals for safe DC to least restrictive environment.
[2019-03-16] MEDS: SIMVASTATIN 20 MG TABLET PO SCH (21:34)
[2019-03-16] MEDS ORDERED: ALBUTEROL SULFATE (0.083%) 2.5 MG/3 ML NEB INH SCH (22:00)
[2019-03-17] MEDS: ALBUTEROL SULFATE (0.083%) 2.5 MG/3 ML NEB INH PRN ×2 (01:02→08:32)
[2019-03-17] MEDS ORDERED: METHYLPREDNISOLONE PF 125MG/VIAL IVP SCH (09:00)
[2019-03-17] MEDS ORDERED: PREDNISONE 20 MG TAB PO ONE (09:02)
[2019-03-17] MEDS: CLONIDINE HCL 0.1 MG TABLET PO SCH (10:49)
[2019-03-17] MEDS: CELECOXIB 100 MG CAPSULE PO SCH (10:49)
[2019-03-17] MEDS: DOCUSATE SODIUM 100 MG CAPSULE PO SCH (10:49)
[2019-03-17] MEDS: ATENOLOL 25 MG TABLET PO SCH (10:50)
[2019-03-17] MEDS: ALLOPURINOL 100 MG TAB PO SCH (10:50)
[2019-03-17] MEDS: SERTRALINE HCL 50 MG TABLET PO SCH (10:50)
[2019-03-17] MEDS: LISINOPRIL 20 MG TABLET PO SCH (10:50)
[2019-03-17] MEDS: RIVAROXABAN 10 MG TABLET PO SCH (10:50)
[2019-03-17] MEDS: FERROUS SULFATE 325 MG TAB PO SCH (10:50)
--- NOTE | 2019-03-17 10:58 | Physical Therapy Tx Note ---
Physical Therapy Tx Note - Treatment Note Tolerated: Good Total Time Spent With Patient: 45 Physical Therapy Tx Note: Detail (Pt sitting in recliner upon arrival; awake, alert, cooperative for therapy. Expressed desire to urinate, stated he could walk to bathroom. Sit/stand to standard walker with CGA, ambulated to bathroom with CGA to stand at toilet. Independently managed clothing; stood for about 5 minutes attempting to urinate, unable. Required minimal assist to manage clothing afterward. Ambulated back to recliner w/CGA, stated fatigue. Noted that shorts were wet in front; pt did not sense that he had urinated, perhaps dribbled. Pt's came during session; pt had no other clothes here yet. Rested for a couple of minutes then performed 10 reps each of reclined hip flexion, knee extension, isometric hip adduction w/pillow, isometric hip abduction and isometric knee flexion w/manual resistance, ankle pumps. Ambulated again from recliner out to hallway to elevator and back to room, w/CGA (about 50 feet total). All transfers are safe w/supervision. Somewhat short of breath w/ambulation, cued to slow down his breathing. Recovered fairly quickly. Left up in recliner w/call light in reach, chair alarm set, present in room. Nrsg notified.) Physical Therapy Problem List: Detail (1) Decreased R LE strength s/p surgery 2) Shortness of breath with ambulation and bed mobility 3) Impaired ambulation s/p surgery) Physical Therapy Goals: 1) The patient will be independent with THR precautions ( Goal Met). 2) The patient will ambulate on stairs with supervision for safety using proper technique.(Goal Met). 3) The patient will ambulate with standard walker household distances independently WBAT on the R LE. Prognosis: Good Physical Therapy Plan: Pt and to determine w/nrsg later today if they feel he can go home today; that is his preference. He understands that if bladder issues don't resolve, he may stay a few more days to build strength and endurance. If pt transitions to swing bed status, will re-evaluate tomorrow.
[2019-03-17 12:32] LABS: URINE APPEARANCE SL CLOUDY; URINE BILIRUBIN NEGATIVE (NEGATIVE); URINE BLOOD TRACE-I (NEGATIVE); URINE COLOR YELLOW; URINE GLUCOSE (UA) NEGATIVE (NEGATIVE); URINE KETONE NEGATIVE (NEGATIVE); URINE LEUKOCYTE ESTERASE NEGATIVE (NEGATIVE); URINE NITRITE NEGATIVE (NEGATIVE); URINE PROTEIN TRACE (NEGATIVE); URINE UROBILINOGEN 0.2 E.U./dL (0.20 - 1.00)
[2019-03-17 12:49] LABS: URINE BACTERIA NONE SEEN; URINE EPITHELIAL CELLS 0 - 2 (FEW); URINE RBC 0 - 2 (NONE SEEN); URINE WBC NONE SEEN (0-2/hpf)
--- NOTE | 2019-03-18 08:30 | Discharge Summary ---
DATE: 03/17/2019 at 1:10 p.m. DISCHARGE DIAGNOSES: 1. Postop day 3 hip replacement, Dr. Lawson. 2. Weakness. The patient stayed an extra day because he was too weak to go home per nursing, and was concerned about him. 3. Allergic rhinitis with nasal congestion and some upper airway congestion. 4. Status post hypertension. 5. Status post gastroesophageal reflux disease. 6. Hyperlipidemia. 7. Chronic kidney disease. 8. Macular degeneration. 9. Tremor. 10. Right hip replacement 4 days prior. 11. Overweight. ATTENDING PHYSICIAN: Vladimir Hernández DO, covering Dr. Lawson. REASON FOR HOSPITALIZATION: Right hip pain and having elective right hip replacement. THERAPY PROVIDED: Physical Therapy worked with him after surgery and he is walking in the hallway with a walker. Doing much better than yesterday. HOSPITAL COURSE: Slow to improve after surgery but is up and moving at postop day 3. Pain control with Tylenol 650 q.4 h. p.r.n. is at the bedside, feels comfortable taking the patient home. CONDITION ON DISCHARGE: Much improved. Ambulating in the [place] with a walker. DISCHARGE INSTRUCTIONS: Follow up with Dr. Lawson as scheduled. Medications on discharge are clonidine 0.1 mg b.i.d., Colace 100 mg b.i.d., iron 325 b.i.d., Zocor 40 mg at h.s., Celebrex 200 mg daily for 30 days, Tenormin 25 mg daily, Xarelto 10 mg a day for 14 day, Zestril 20 mg a day, Zoloft 50 mg a day, Zyloprim 300 mg a day. The patient is also to follow up with his primary care doctor in the next 2-[address] [facility]
--- NOTE | 2019-03-18 11:00 | Operative Note ---
DATE OF SURGERY: 03/14/2019 PREOPERATIVE DIAGNOSIS: Endstage right hip arthrosis. POSTOPERATIVE DIAGNOSIS: Endstage right hip arthrosis. OPERATION: Right total hip arthroplasty. SURGEON: Umberto Lawson M.D. ANESTHESIA: Spinal. COMPLICATIONS: None. ANESTHESIA PROVIDER: Georgia ABRAMS ESTIMATED BLOOD LOSS: 200 mL. OPERATIVE FINDINGS: [id number] valgus arthrosis. COMPONENTS PLACED: Two grams of vancomycin cement, [employer] cemented Synergy collared high offset size 15 stem with a 32 -3 mm Glade Chrome femoral head component, a 58 mm 3-hole Reflection acetabular screw component with 2 screw caps, a Synthes threaded screw cap and a 40 mm acetabular screw and a 35 degree hooded high crosslinked polyethylene liner. INDICATIONS: An 88-year-old male who is well known to myself, who is status post left hip arthroplasty done several months ago and now is scheduled for a right [id number] valgus arthrosis. I explained the risks and benefits in detail for a diagnosis of the procedures, including, but not limited to, infection, nerve injury, vessel injury, persistent pain, numbness, and tingling in his hip, paraprosthetic fracture, need for resection arthroplasty, components infected or loosened, blood clot, and need for further procedures. All of his questions were answered in the room. The course outlined and he agreed to proceed. PROCEDURES: The patient was brought into the OR and placed in the left lateral decubitus position. The right hip and lower extremity were prepped and draped in sterile fashion, prepped again with Chloraprep and was draped. An intraoperative timeout was performed. Next, we marked a posterior incision to the hip, it was a minimal incision, infiltrated with 0.5% Marcaine with epinephrine, Exparel, and tranexamic acid mixture. The skin and subcutaneous were dissected down to the gluteal fascia, split longitudinally in the subgluteal plane and bluntly dissected. A self- retainer was brought in identifying the short external rotators, the sciatic nerve carefully released the short external rotators and protected the sciatic nerve at all times. Next, incised the capsule in an inverted T fashion and released and dislocated the femoral head without difficulty. It was a large femoral head which is severely arthritic, no articular cartilage in the valgus-type neck orientation. Next, I resected the femoral head about 1.5 cm over the lesser trochanter and inserted the box osteotome and then started reaming with 1 mm increments up to a size 15, we stopped. There is a good fit and this is what he had on the contralateral side. Next, we broached a 13 calcar plane and then the 14 calcar plane and then a 15 and it fit nicely in 15 degrees of anteversion. Next, attention turned to the acetabulum, we released the anterior capsule of the acetabulum, placed a self retainer in there and inferior acetabular retractor, removed some of the labrum and capsule. Next, I started reaming in 1 mm increments in 45 degrees inclination and 20 degree anteverted until we reamed up to a size 57 mm reamer and this began to have a good peripheral and central fit now. We then trialed a 58 mm shell and it fit nice and was down flush with the medial wall. Next, we brought in the real component, changed gloves, brought in a clean sheet, irrigated copiously and then packed down the real 3-hole Reflection acetabular component using a helicopter guide, again in 45 degrees inclination and 20 degrees anteverted, and then drilled the posterior center superior quadrant screw hole 40 mm, inserted that screw, had a good purchase. We placed a trial liner, did a trial reduction. Best combination range of motion stability and leg lengths was with a 32 -3 mm femoral head component that allowed for symmetric leg lengths, flexion at 90 and internal rotation of 80 for the hip dislocated, stability with extension and external rotation, this was the size we used. Next, we removed all trial components, we irrigated copiously, inserted the 2 screw caps, Synthes threaded screw cap, and packed down the real 35 degree hooded high crosslinked polyethylene liner with the rey in the posterior superior quadrant. We verified it was interlocked in the acetabular shell. Next, we irrigated the femoral canal, placed cement, restricted distally, injected the cement using third generation cement technique,removed the suction catheter and then impacted down the real femoral stem, again in 15 degrees anteverted until the collar was flush with the calcar, held there until the cement hardened, cleaned and dried the trunnion. Impacted down the real femoral head component securely. We re-reduced the hip, found the range of motion still the same, irrigated copiously. Next, we injected from deep to superficial the short external rotators, abductors, etc., with 0.5% Marcaine with epinephrine, 2 grams of tranexamic acid and Exparel mixtures. Next, then closed the gluteal fascia with running 2 Quill suture and closed the skin with buried 2-0 Vicryl. Sterile dressing applied, provisional convert to a KYLE dressing prior to discharge, likely tomorrow. Abductor pillow. Postoperative x-ray revealed good fit and orientation of component. The patient tolerated the procedure well. No intraoperative complications. Sponge and needle counts correct. Recovery stable. Neuro is intact. He will be discharged likely tomorrow, follow up in 2 weeks. ANTELMO
--- NOTE | 2019-03-21 13:21 | RADIOLOGY REPORT ---
STUDY: Single view right hip. CLINICAL HISTORY: Status post right total hip arthroplasty. TECHNIQUE: A single portable AP view of the right hip was performed. COMPARISON: 01/11/2019 FINDINGS: The patient is status post right total hip arthroplasty. The orthopedic components are normal in appearance. There is no evidence for fracture or dislocation. IMPRESSION: Status post right total hip arthroplasty with no complicating features. ANTELMO
--- NOTE | 2019-03-21 13:23 | RADIOLOGY REPORT ---
VIEW: 2 view chest. HISTORY: Wheezing and difficulty breathing. Recent hip replacement. TECHNIQUE: PA and lateral upright views of the chest were obtained. COMPARISON: None. FINDINGS: The heart is normal in size. A moderate sized hiatal hernia is present. There was calcification and mild tortuosity of the aorta. The mediastinum and pulmonary vasculature are normal. There are mild interstitial infiltrates within the mid and lower lung stock. These are suggestive of a mild underlying chronic interstitial lung disease. No definite acute infiltrates are identified. There was no pneumothorax or effusion. The bones appear intact. IMPRESSION: 1. Suspected mild chronic interstitial changes within the mid and lower lung stock. 2. No acute chest pathology identified. 3. Moderate-sized hiatal hernia. MTDD
== END 2019-03-17 14:15 | disposition home or self-care (01) | DRG 470 ==
LOC: UNDOADMIN 07:57 → MEDSURG 07:57 → UNDOADMIN 03-15 20:35 → MEDSURG 03-15 20:35
PROVIDERS: ADMIT Orthopaedic Surgery; ATTEND Orthopaedic Surgery
PROC: 0SR9069 Replacement of Right Hip Joint with Oxidized Zirconium on Polyethylene Synthetic Substitute, Cemented, Open Approach (ICD-10-PCS; principal; 2019-03-14 10:00)
DX: M16.11 Unilateral primary osteoarthritis, right hip (principal); I10 Essential (primary) hypertension; E78.00 Pure hypercholesterolemia, unspecified; G47.33 Obstructive sleep apnea (adult) (pediatric); M10.9 Gout, unspecified
CPT/HCPCS: 71046; 81001; 85014; 85018; 86850; 86900; 86901; 94640; 94664; 94760; 97530; 99233; 99239; C1776; J3370; J7042; J7120; J7512; J7613